=== PATIENT | male | born 1965 | race Caucasian/White ===

== ENCOUNTER 2022-08-04 08:40 | Emergency (ER) | payer OTHER, SELFPAY ==
[2022-08-04] VITALS (27 sets, daily range): BP systolic 113–138; BP diastolic 77–95; PULSE 71–86; RESP 18; TEMP 36.7; O2SAT 95–98; BMI 23.1
--- NOTE | 2022-08-04 08:58 | ED.NURSE ---
ekg done, pt placed on heart monitor shows sr 80's. #20 sl placed R FA, blood drawn off iv start
--- NOTE | 2022-08-04 09:06 | CRLHL7_ITS ---
For Patients: As a result of the Century Cures Act, medical imaging exams and procedure reports are released immediately into your electronic medical record. You may view this report before your referring provider. If you have questions, please contact your health care provider. INDICATION: CHEST PAIN TECHNIQUE: Chest 1 view. COMPARISON: 10/27/16 FINDINGS: Cardiovascular and mediastinum: Heart size and vasculature are normal in caliber and appearance. Mediastinum is within normal limits. Lungs and pleural space: Lungs are clear. No sign of infiltrate or mass. No sign of pleural effusion. No pneumothorax. Bones and soft tissues: No significant findings. IMPRESSION: Unremarkable chest. Dictated by: Estevan Murray MD @ 08/04/2022 09:32:32 (Electronically Signed)
[2022-08-04 09:18] LABS: Basophils Absolute Auto 0.04 K/uL (0.00-0.30); Basophils Percent Auto 0.5 % (0.0-3.0); Eosinophils Percent Auto 1.2 % (0.0-7.0); Hematocrit 47.5 % (37.0-53.0); Hemoglobin* 16.8 gm/dL (13.5-17.5); Immature Granulocytes Abs Auto 0.02 K/uL (0.00-0.30); Immature Granulocytes Pct Auto 0.2 %; Lymphocytes Absolute Auto 2.14 K/uL (0.90-2.90); Lymphocytes Percent Auto 25.4 % (20-44); Mean Corpuscular HGB Conc 35 gm/dL (32-36); Mean Corpuscular Hemoglobin 30 pg (26-34); Mean Corpuscular Volume 85 fL (80-100); Monocytes Percent Auto 7.1 % (0.0-11.0); Neutrophils Absolute Auto 5.53 K/uL (1.7-7.0); Neutrophils Percent Auto 65.6 % (42.0-72.0); Platelet Count* 260 K/uL (140-440); Red Blood Count 5.58 m/uL (4.30-5.90); White Blood Count* 8.43 K/uL (4.50-11.00)
[2022-08-04 09:19] LABS: Slide Review Reflex No
[2022-08-04 09:38] LABS: Chloride* 113 mmol/L (96-114); Potassium* 4.4 mmol/L (3.6-5.1); Sodium* 140 mmol/L (135-149)
[2022-08-04 09:39] LABS: Albumin* 4.2 g/dL (3.3-5.0)
[2022-08-04 09:41] LABS: Creatinine* 0.6 mg/dL (0.5-1.5); Est. Creatinine Clearance* 146.37; Estimated Glomerular Filt Rate 112 ml/min
[2022-08-04 09:42] LABS: Aspartate Amino Transferase* 35 U/L (12-35); Bilirubin Direct* 0.1 mg/dL (0.0-0.5); Bilirubin Total* 0.5 mg/dL (0.1-1.5); Blood Urea Nitrogen* 12 mg/dL (7-30); Calcium* 9.3 mg/dL (8.4-10.6); Carbon Dioxide* 22 mmol/L (20-32); Glucose* 88 mg/dL (60-115); Total Protein* 7.1 g/dL (6.0-8.3)
[2022-08-04 09:43] LABS: Alanine Aminotransferase* 30 U/L (4-50); Alkaline Phosphatase* 77 U/L (40-150)
[2022-08-04] MEDS: ASPIRIN 81 MG TAB.CHEW 324 MG PO (09:46)
[2022-08-04 09:51] LABS: NT Pro B Type NatriureticPept* 785 pg/mL
[2022-08-04 09:54] LABS: D Dimer Quantitative* < 0.27 ug/ml (0.00-0.50)
[2022-08-04 09:55] LABS: Troponin I* 0.96 ng/mL (0.01-0.04)
[2022-08-04 09:56] LABS: C Reactive Protein* < 0.5 mg/dL (0.5-1.0)
--- NOTE | 2022-08-04 09:56 | ED.NURSE ---
critical lab received - Troponin 0.96 - Dr. Lofton aware
[2022-08-04] MEDS: HEPARIN 5,000 UNIT/0.5 ML INJ 4000 UNIT IVP (10:20)
[2022-08-04] MEDS: HEPARIN 25,000 UNIT/500 ML BAG 19 UNIT IV (10:21)
--- NOTE | 2022-08-04 10:28 | ED.NURSE ---
heparin drip started, bolus given. plan transfer to [facility] when bed available, possibly in 4 hours
[2022-08-04 10:48] LABS: SARS PCR* Negative SARS-CoV-2 (Negative)
[2022-08-04 11:01] LABS: INR 0.92 (0.91-1.10); Partial Thromboplastin Time* 29 Seconds (23-33); Prothrombin Time 12.9 Seconds
--- NOTE | 2022-08-04 11:54 | ED_ITS ---
HPI - General Adult General Date Seen: 08/04/22 Chief complaint: Chest Pain Stated complaint: Chest pain Time Seen by Provider: 08/04/22 08:53 Source: patient, RN notes reviewed and old records reviewed Mode of arrival: ambulatory Limitations: no limitations History of Present Illness HPI narrative: Patient is a 56-year-old male with a history of coronary artery disease, status post stent of the RCA in 2017. For the past week or so he has been having symptoms reminiscent of his symptoms prior to his stent. He says he has been having significant fatigue with exertion, which is how he felt prior to the stent. In addition, he has been having chest tightness with radiation into bilateral arms. He did not have chest pain before his stent. Chest pain resolves with rest. He was seen at [facility] on last week, he had negative troponins and a CT coronary angiogram which showed a little bit of plaque in the left circumflex, other arteries were clean and the stent was patent. He was sent home with recommended close follow-up with primary care. He has not yet followed up with primary care. He says on Thursday he was shoveling snow, was only able to do 4 or 5 scoops of no before he developed pain in his chest, associated with diaphoresis. He says he felt poorly, went inside and had to lay down for a while. He did not seek medical care on Thursday. Today, he was walking in his house and again developed chest pain with radiation into the arms. He does not get significantly short of breath, no nausea or vomiting. Symptoms today lasted about 30 minutes and then resolved. He presents to the ER for further evaluation. He is pain-free right now. He takes a baby aspirin daily. He takes medications for high cholesterol and hypertension. He had continued to smoke, although he says he smokes mostly cigars, but says he has not smoked since . Denies significant alcohol use. Related Data Home Medications Medication Instructions Recorded Confirmed atorvastatin 40 mg tablet mg 08/04/22 losartan 50 mg tablet mg 08/04/22 Allergies Allergy/AdvReac Type Severity Reaction Status Date / Time No Known Drug Allergies Allergy Verified 08/04/22 08:50 Review of Systems Status of ROS: Reports: 10 or more systems reviewed and unremarkable except as noted in History and below PFSH PFS Social History Smoking Status: Current some day smoker What tobacco products do you use: cigars How often do you have a drink containing alcohol: 4 or more times a week AUDIT-C Alcohol total score: 4 Non-prescribed substance use: marijuana (any form) Exam Narrative: Exam Narrative: Vital signs as noted above. In general, an alert, well-appearing patient. Head: Normocephalic, atraumatic. Eyes: Pupils are equal reactive. Extraocular movements are full. Conjunctivae are normal. ENT: Mucous membranes are moist. Throat is normal. Neck: Supple without lymphadenopathy. Heart: Regular rate and rhythm. No murmur or rub. Lungs: Clear bilaterally. No increased work of breathing, crackles or wheezes. Abdomen: Soft and nontender. No organomegaly. Extremities: Well perfused. No edema. No calf tenderness. Pulses intact. Neurologic: Patient is alert and oriented to person and place. Speech is fluent. Face is symmetric. Moves all extremities equally. Affect: Normal. Skin: Warm and dry. Well perfused. Const: Vital Signs, click to edit/add: Vital Signs - 24 hr 08/04/22 08:45 08/04/22 09:04 08/04/22 09:05 Temperature 98.1 F Pulse Rate 86 79 Pulse Rate [Right Pulse Oximeter] 79 Respiratory Rate 18 Blood Pressure 125/82 Blood Pressure [Ri ght Upper Arm] 138/95 H Pulse Oximetry 98 97 98 Oxygen Delivery Me thod Room Air 08/04/22 09:30 08/04/22 09:32 08/04/22 10:00 Temperature Pulse Rate 84 86 83 Pulse Rate [Right Pulse Oximeter] Respiratory Rate Blood Pressure 115/81 Blood Pressure [Ri ght Upper Arm] Pulse Oximetry 96 96 97 Oxygen Delivery Me thod 08/04/22 10:02 08/04/22 10:03 08/04/22 10:30 Temperature Pulse Rate 78 74 77 Pulse Rate [Right Pulse Oximeter] Respiratory Rate Blood Pressure 119/78 Blood Pressure [Ri ght Upper Arm] Pulse Oximetry 96 96 97 Oxygen Delivery Me thod 08/04/22 10:32 08/04/22 10:33 08/04/22 11:00 Temperature Pulse Rate 79 81 82 Pulse Rate [Right Pulse Oximeter] Respiratory Rate Blood Pressure 123/86 Blood Pressure [Ri ght Upper Arm] Pulse Oximetry 97 97 96 Oxygen Delivery Me thod 08/04/22 11:02 08/04/22 11:30 08/04/22 11:32 Temperature Pulse Rate 83 85 77 Pulse Rate [Right Pulse Oximeter] Respiratory Rate Blood Pressure 121/86 127/79 Blood Pressure [Ri ght Upper Arm] Pulse Oximetry 97 96 96 Oxygen Delivery Me thod 08/04/22 12:00 08/04/22 12:02 08/04/22 12:30 Temperature Pulse Rate 78 77 77 Pulse Rate [Right Pulse Oximeter] Respiratory Rate Blood Pressure 127/82 Blood Pressure [Ri ght Upper Arm] Pulse Oximetry 95 96 95 Oxygen Delivery Me thod 08/04/22 12:32 08/04/22 12:33 08/04/22 13:00 Temperature Pulse Rate 76 76 72 Pulse Rate [Right Pulse Oximeter] Respiratory Rate Blood Pressure 122/77 Blood Pressure [Ri ght Upper Arm] Pulse Oximetry 96 95 96 Oxygen Delivery Me thod 08/04/22 13:02 08/04/22 13:30 08/04/22 13:32 Temperature Pulse Rate 75 75 76 Pulse Rate [Right Pulse Oximeter] Respiratory Rate Blood Pressure 121/84 113/80 Blood Pressure [Ri ght Upper Arm] Pulse Oximetry 97 96 98 Oxygen Delivery Me thod 08/04/22 14:00 08/04/22 14:02 08/04/22 14:32 Temperature Pulse Rate 77 71 76 Pulse Rate [Right Pulse Oximeter] Respiratory Rate Blood Pressure 123/85 123/94 H Blood Pressure [Ri ght Upper Arm] Pulse Oximetry 96 97 97 Oxygen Delivery Me thod Course Course Hospital Course: On arrival, patient had an EKG which by my review showed a normal sinus rhythm, ventricular rate of 70 beats per minute. Compared to an EKG from [facility] on , the only potential changes that the T-waves are more prominent in the anterior leads. There are no ST segment changes. He has Q-waves in leads 2 3 a nd F. I did repeat the EKG about 30 minutes later, patient remained pain-free at that time, EKG continues to show no acute ST segment changes. He received an aspirin, labs were drawn. Initial point of care troponin was 0.4, a lab troponin was 0.96. Portable chest x-ray by my review was unremarkable, final radiology read was likewise negative. I did talk with the rope rider, Dr. Grier, who was on-call for Cardiology at [place]. He agreed with treatment for non-STEMI at this time with heparin bolus and drip, so this was initiated. Patient's labs are unremarkable, white count is 8.4, hemoglobin 16.8. D-dimer is negative. Metabolic panel shows normal electrolytes, BUN 12, creatinine 0.6, LFTs normal. BNP mildly elevated at 785 but no evidence of congestive heart failure on exam or chest x-ray. COVID is negative. Patient has been hemodynamically stable, no further complaints of chest pain thus far in the emergency department. Update from [facility] was that the bed assignment would be delayed an additional 5 hours or so. Therefore, we did make some phone calls looking for other bed availability. We were able to secure a bed at [facility]; I spoke with Dr. Muñoz who was on-call for Cardiology there. Patient was transferred there by ground in stable condition. Vital Signs Vital signs: Initial Vital Signs Temperature 98.1 F 08/04/22 08:45 Temperature Source Temporal Artery Scan 08/04/22 08:45 Pulse Rate 79 08/04/22 08:45 Respiratory Rate 18 08/04/22 08:45 Blood Pressure 138/95 H 08/04/22 08:45 Blood Pressure Mean 109 08/04/22 08:45 Blood Pressure Position Sitting 08/04/22 08:45 Pulse Oximetry 98 08/04/22 08:45 Oxygen Delivery Method 08/04/22 08:45 Vital Signs Temperature 98.1 F 08/04/22 08:45 Pulse Rate 79 08/04/22 08:45 Respiratory Rate 18 08/04/22 08:45 Blood Pressure 138/95 H 08/04/22 08:45 Pulse Oximetry 98 08/04/22 08:45 Oxygen Delivery Method 08/04/22 08:45 Temperature 98.1 F 08/04/22 08:45 Pulse Rate 76 08/04/22 14:32 Respiratory Rate 18 08/04/22 08:45 Blood Pressure 123/94 H 08/04/22 14:32 Pulse Oximetry 97 08/04/22 14:32 Oxygen Delivery Method 08/04/22 08:45 Medical Decision Making Lab Data Labs: Lab Results 08/04/22 08/04/22 08/04/22 Range/Units 08:58 08:58 08:58 WBC 8.43 (4.50-11.00) K/uL RBC 5.58 (4.30-5.90) m/uL Hgb 16.8 (13.5-17.5) gm/dL Hct 47.5 (37.0-53.0) % MCV 85 (80-100) fL MCH 30 (26-34) pg MCHC 35 (32-36) gm/dL RDW Coeff of Alfred 13.0 (11.5-15.5) % Plt Count 260 (140-440) K/uL Neut % (Auto) 65.6 (42.0-72.0) % Lymph % (Auto) 25.4 (20-44) % [place] % (Auto) 7.1 (0.0-11.0) % Eos % (Auto) 1.2 (0.0-7.0) % Baso % (Auto) 0.5 (0.0-3.0) % Neut # (Auto) 5.53 (1.7-7.0) K/uL Lymph # (Auto) 2.14 (0.90-2.90) K/uL [place] # (Auto) 0.60 (0.00-0.90) K/UL Eos # (Auto) 0.10 (0.00-0.50) K/uL Baso # (Auto) 0.04 (0.00-0.30) K/uL INR (0.91-1.10) APTT (23-33) Seconds D-Dimer Quant (PE/DVT) < 0.27 (0.00-0.50) ug/ml Sodium 140 (135-149) mmol/L Potassium 4.4 (3.6-5.1) mmol/L Chloride 113 (96-114) mmol/L Carbon Dioxide 22 (20-32) mmol/L BUN 12 (7-30) mg/dL Creatinine 0.6 (0.5-1.5) mg/dL Estimated Creat Clear 146.37 Estimated GFR 112 ml/min Glucose 88 (60-115) mg/dL Calcium 9.3 (8.4-10.6) mg/dL Total Bilirubin (0.1-1.5) mg/dL Direct Bilirubin (0.0-0.5) mg/dL AST (12-35) U/L ALT (4-50) U/L Alkaline Phosphatase (40-150) U/L Troponin I (0.01-0.04) ng/mL C-Reactive Protein < 0.5 L (0.5-1.0) mg/dL NT-Pro-B Natriuret Pep pg/mL Total Protein (6.0-8.3) g/dL Albumin (3.3-5.0) g/dL SARS-CoV-2 (PCR) (Negative) POC Troponin I (0.01-0.04) ng/ml 08/04/22 08/04/22 08/04/22 Range/Units 08:58 08:58 09:08 WBC (4.50-11.00) K/uL RBC (4.30-5.90) m/uL Hgb (13.5-17.5) gm/dL Hct (37.0-53.0) % MCV (80-100) fL MCH (26-34) pg MCHC (32-36) gm/dL RDW Coeff of Alfred (11.5-15.5) % Plt Count (140-440) K/uL Neut % (Auto) (42.0-72.0) % Lymph % (Auto) (20-44) % [place] % (Auto) (0.0-11.0) % Eos % (Auto) (0.0-7.0) % Baso % (Auto) (0.0-3.0) % Neut # (Auto) (1.7-7.0) K/uL Lymph # (Auto) (0.90-2.90) K/uL [place] # (Auto) (0.00-0.90) K/UL Eos # (Auto) (0.00-0.50) K/uL Baso # (Auto) (0.00-0.30) K/uL INR 0.92 (0.91-1.10) APTT 29 (23-33) Seconds D-Dimer Quant (PE/DVT) (0.00-0.50) ug/ml Sodium (135-149) mmol/L Potassium (3.6-5.1) mmol/L Chloride (96-114) mmol/L Carbon Dioxide (20-32) mmol/L BUN (7-30) mg/dL Creatinine (0.5-1.5) mg/dL Estimated Creat Clear Estimated GFR ml/min Glucose (60-115) mg/dL Calcium (8.4-10.6) mg/dL Total Bilirubin 0.5 (0.1-1.5) mg/dL Direct Bilirubin 0.1 (0.0-0.5) mg/dL AST 35 (12-35) U/L ALT 30 (4-50) U/L Alkaline Phosphatase 77 (40-150) U/L Troponin I 0.96 H* (0.01-0.04) ng/mL C-Reactive Protein (0.5-1.0) mg/dL NT-Pro-B Natriuret Pep 785 pg/mL Total Protein 7.1 (6.0-8.3) g/dL Albumin 4.2 (3.3-5.0) g/dL SARS-CoV-2 (PCR) (Negative) POC Troponin I 0.40 H (0.01-0.04) ng/ml 08/04/22 Range/Units 09:41 WBC (4.50-11.00) K/uL RBC (4.30-5.90) m/uL Hgb (13.5-17.5) gm/dL Hct (37.0-53.0) % MCV (80-100) fL MCH (26-34) pg MCHC (32-36) gm/dL RDW Coeff of Alfred (11.5-15.5) % Plt Count (140-440) K/uL Neut % (Auto) (42.0-72.0) % Lymph % (Auto) (20-44) % [place] % (Auto) (0.0-11.0) % Eos % (Auto) (0.0-7.0) % Baso % (Auto) (0.0-3.0) % Neut # (Auto) (1.7-7.0) K/uL Lymph # (Auto) (0.90-2.90) K/uL [place] # (Auto) (0.00-0.90) K/UL Eos # (Auto) (0.00-0.50) K/uL Baso # (Auto) (0.00-0.30) K/uL INR (0.91-1.10) APTT (23-33) Seconds D-Dimer Quant (PE/DVT) (0.00-0.50) ug/ml Sodium (135-149) mmol/L Potassium (3.6-5.1) mmol/L Chloride (96-114) mmol/L Carbon Dioxide (20-32) mmol/L BUN (7-30) mg/dL Creatinine (0.5-1.5) mg/dL Estimated Creat Clear Estimated GFR ml/min Glucose (60-115) mg/dL Calcium (8.4-10.6) mg/dL Total Bilirubin (0.1-1.5) mg/dL Direct Bilirubin (0.0-0.5) mg/dL AST (12-35) U/L ALT (4-50) U/L Alkaline Phosphatase (40-150) U/L Troponin I (0.01-0.04) ng/mL C-Reactive Protein (0.5-1.0) mg/dL NT-Pro-B Natriuret Pep pg/mL Total Protein (6.0-8.3) g/dL Albumin (3.3-5.0) g/dL SARS-CoV-2 (PCR) Negative SARS-CoV-2 (Negative) POC Troponin I (0.01-0.04) ng/ml Discharge Plan Discharge Clinical Impression: Acute non-ST elevation myocardial infarction (NSTEMI) Patient Disposition: Xfer [place] Discharge Location: [facility] Condition: Stable Prescriptions: No Action losartan 50 mg tablet Label Comments: Take 1 Tablet (50 mg) by mouth once daily. atorvastatin 40 mg tablet Label Comments: TAKE ONE TABLET BY MOUTH ONE TIME DAILY AT BEDTIME Stand Alone Forms: MyHealth Info Instructions
--- NOTE | 2022-08-04 14:43 | ED.NURSE ---
report to [facility] - at bedside to transport pt, pt to [facility]. attempted report to isabel RN, they will call back when ready.
--- NOTE | 2022-08-04 15:37 | ED.NURSE ---
report to tila BROTHERS at [facility] [place].
== END 2022-08-04 14:55 | disposition other institution (70) ==
PROVIDERS: Emergency Provider Emergency Medicine; PCP Physician Assistant
DX: I21.4 Non-ST elevation (NSTEMI) myocardial infarction (principal)
CPT/HCPCS: 36415; 71045; 80048; 80076; 83880; 84484; 85025; 85379; 85610; 85730; 86140; 87635; 93005; 94761; 96374; 99285; A9270; J1644

== ENCOUNTER 2022-08-04 14:39 | Outpatient (CLI) | payer OTHER, SELFPAY | END 2022-08-04 14:40 | disposition home or self-care (01) | LOC: AMB 08-06 01:59 | PROVIDERS: PCP Physician Assistant; Visit Provider Emergency Medicine | DX: R77.8 Other specified abnormalities of plasma proteins (principal) | CPT/HCPCS: A0425; A0434 ==

== ENCOUNTER 2023-08-07 06:32 | Emergency (ER) | payer OTHER, SELFPAY ==
[2023-08-07 06:37] VITALS: BP 143/92; PULSE 75; RESP 20; TEMP 36.9; O2SAT 97; BMI 23.1
[2023-08-07 06:58] LABS: Troponin, Point-of-Care* 0.01 ng/ml (0.01-0.04)
--- NOTE | 2023-08-07 07:03 | CRLHL7_ITS ---
For Patients: As a result of the Century Cures Act, medical imaging exams and procedure reports are released immediately into your electronic medical record. You may view this report before your referring provider. If you have questions, please contact your health care provider. Indication: Chest pain Technique: Chest 1 view Comparison: Chest x-ray 08/04/2022 Findings/Impression: Cardiovascular and mediastinum: Normal heart size with coronary stent noted. Lungs and pleural space: Lungs are clear. No sign of infiltrate or mass. No sign of pleural effusion. No pneumothorax. Bones and soft tissues: No acute findings. Dictated by Werner Amaro MD @ 08/07/2023 7:19:09 AM (Electronically Signed)
[2023-08-07 07:04] LABS: Basophils Absolute Auto 0.03 K/uL (0.00-0.30); Basophils Percent Auto 0.4 % (0.0-3.0); Eosinophils Absolute Auto 0.12 K/uL (0.00-0.50); Eosinophils Percent Auto 1.6 % (0.0-7.0); Hematocrit 48.4 % (37.0-53.0); Hemoglobin* 16.5 gm/dL (13.5-17.5); Immature Granulocytes Abs Auto 0.04 K/uL (0.00-0.30); Immature Granulocytes Pct Auto 0.5 %; Lymphocytes Absolute Auto 1.91 K/uL (0.90-2.90); Lymphocytes Percent Auto 25.8 % (20-44); Mean Corpuscular HGB Conc 34 gm/dL (32-36); Mean Corpuscular Hemoglobin 30 pg (26-34); Mean Corpuscular Volume 87 fL (80-100); Neutrophils Absolute Auto 4.78 K/uL (1.7-7.0); Neutrophils Percent Auto 64.7 % (42.0-72.0); Platelet Count* 251 K/uL (140-440); RDW Coefficient of Variation % 12.9 % (11.5-15.5); Red Blood Count 5.56 m/uL (4.30-5.90)
[2023-08-07 07:05] LABS: Slide Review Reflex No
--- OUTSIDE RECORDS SUMMARY | 2023-08-07 07:12 | XMS_ITS | Encounter Summary ---
Author Name Unknown Organization [facility] Address [address] [place] [address] Care Team Providers Care Physical Scientist Name Role Phone Elsewhere, Pcp Primary Care Provider Unavailabl e Reason for Visit * Reason Onset Date Comments Nicotine Dependence 02/16/2023 Encounter Details Date Type Department Care Team (Latest Contact Info) Description 02/16/2023 Clinical Communication Department of Nicotine Dependence, [facility], in [place], [place] [address] [place] [address] Tena Read [address] [place] [address] Nicotine Dependence Social History Tobacco Use Types Packs/Day Years Used Date Smoking Tobacco: Every Day Cigarettes 1 40 Started: 07/06/1978 Smokeless Tobacco: Never Comments:Cut down to 5 per d ay about 5 years ago, around 2018 Nutrition Answer Date Recorded Nutrition: EVOO Fat Source Unknown 08/04 Nutrition: Servings of Fruits/Vegetables per Day Not on file 08/04/2022 Dental Answer Date Recorded Dental: Regular Dentist Unknown 08/04/19 Sex and Gender Information Value Date Recorded Sex Assigned at Not on file Gender Identity Not on file Sexual Orientation Not on file documented as of this encounter Plan of Treatment Not on file documented as of this encounter Visit Diagnoses Not on filedocumented in this encounter Care Teams Physical Scientist Relationship Specialty Start Date End Date Elsewhere, Pcp PCP - General Internal Medicine 08/04/22 documented as of this encounter
--- OUTSIDE RECORDS SUMMARY | 2023-08-07 07:12 | XMS_ITS | Referral Summary ---
Author Name Unknown Organization [facility] Address [address] [place] [address] Care Team Providers Care Proof Plate Maker Name Role Phone Elsewhere, Pcp Primary Care Provider Unavailabl e Source Comments Patient records contain information from all sites at [facility]. For routine questions regarding patient records, call [phone] during business hours, M-F 8:00 AM - 5:00 PM Central Time. Record requests for emergency care only can be directed to [phone] at any time.[facility] Encounters Date Type Department Care Team Description 08/07/2023 Refill [facility], Sixth Floor [address] [place] [id number] Rosmery Canela Med Refill from Last 3 Months Allergies No known active allergies Medications Medication Sig Dispensed Refills Start Date End Date Status aspirin [address] tablet Take 81 mg by mouth daily. 0 Active omega-3 fatty acids-fish oil 300-1,000 mg per capsule Take 1 g by mouth daily. 0 Active atorvastatin (LIPITOR) 80 mg tablet Take 1 tablet (80 mg total) by mouth at bedtime. 90 tablet 3 08/06/2022 Active nitroglycerin (NITROSTAT) 0.4 mg SL tabletIndications:a ngina Place 1 tablet (0.4 mg total) under the tongue every 5 (five) minutes as needed for chest pain Indications: angina, a type of chest pain. 25 tablet 11 08/06/2022 Active losartan (COZAAR) 25 mg tablet Take 1 tablet (25 mg total) by mouth daily. 60 tablet 0 08/07/2022 Active metoprolol succinate (TOPROL-XL) 50 mg 24 hr tablet Take 1 tablet (50 mg total) by mouth daily. Do not crush or chew. 60 tablet 0 08/07/2022 Active nicotine (NICODERM CQ) 14 mg/24 hr patch Apply 14 mg patch daily for 4-10 weeks, then taper to 7 mg for 4-10 weeks until off. 28 patch 5 08/06/2022 Active clopidogreL (PLAVIX) 75 mg tablet Take 1 tablet (75 mg total) by mouth daily. 30 tablet 11 08/06/2022 08/06/2023 nicotine polacrilex (NICORETTE) 2 mg gum Chew 1 each (2 mg total) as needed for smoking cessation. Use 1 piece every 1-2 hrs as needed for cravings. 110 each 3 08/06/2022 08/06/2023 nicotine (Nicoderm CQ) 7 mg/[address] 1 patch on the skin daily. Apply 14 mg patch daily for 4-10 weeks, then taper to 7 mg for 4-10 weeks until off. 28 patch 5 08/06/2022 08/06/2023 Active Problems Problem Noted Date Diagnosed Date Non-ST Elevation Myocardial Infarction 3 Social History Tobacco Use Types Packs/Day Years Used Date Smoking Tobacco: Every Day Cigarettes 1 40 Started: 07/06/1978 Smokeless Tobacco: Never Tobacco Cessation:Ready to Q uit: Not Asked; Counseling Given: Yes Comments:Cut down to 5 per day about 5 years ago, around 2018 Nutrition Answer Date Recorded Nutrition: EVOO Fat Source Unknown 08/04 Nutrition: Servings of Fruits/Vegetables per Day Not on file 08/04/2022 Dental Answer Date Recorded Dental: Regular Dentist Unknown 08/04/19 23 Sex and Gender Information Value Date Recorded Sex Assigned at Not on file Gender Identity Not on file Sexual Orientation Not on file Last Filed Vital Signs Vital Sign Reading Time Taken Comments Blood Pressure 128/85 08/06/2022 2:24 PM GARNISHER Pulse 73 08/06/2022 2:24 PM GARNISHER Temperature 36.7 ??C (98.1 ??F) 08/06/2022 2:24 PM CS T Respiratory Rate 15 08/06/2022 2:24 PM GARNISHER Oxygen Saturation 97% 08/06/2022 2:24 PM GARNISHER Inhaled Oxygen Concentration - - Weight 74 kg (163 lb 2.3 oz) 08/06/2022 6:00 AM GARNISHER Height 178 cm (5' 10.08) 08/04/2022 4:24 PM GARNISHER Body Mass Index 23.36 08/04/2022 4:24 PM GARNISHER Plan of Treatment Not on file Medical Devices Implanted Type Area Front Office Attendant Device Identifier Shelf Expiration Date Model / Serial / Lot Stnt Synergy Xd De [id number] - [id number] Implanted:Qty : 1 on 08/05/2022 by Poppy Bae M.D. at [facility] Cardiac Stent N/A: Coronary [employer] 02/04/2024 [id number] / / [id number] Description:Distal RCA Advance Directives For more information, please contact: [phone] Latest Code Status on File Code Status Date Activated Date Inactivated Comments Full Code 08/05/2022 6:53 PM 08/06/2022 5:13 PM Question Answer Comments Full Code: Discussed Code Status History Code Status Date Activated Date Inactivated Comments Full Code 08/04/2022 4:54 PM 08/05/2022 6:53 PM Question Answer Comments Full Code: Discussed Care Teams Proof Plate Maker Relationship Specialty Start Date End Date Elsewhere, Pcp PCP - General Internal Medicine 08/04/22
--- OUTSIDE RECORDS SUMMARY | 2023-08-07 07:12 | XMS_ITS | Clinical Summary ---
Author Name Unknown Organization [facility] Address [address] [place] [address] Care Team Providers Care Manager Intelligence Name Role Phone Elsewhere, Pcp Primary Care Provider Unavailabl e Source Comments Patient records contain information from all sites at [facility]. For routine questions regarding patient records, call [phone] during business hours, M-F 8:00 AM - 5:00 PM Central Time. Record requests for emergency care only can be directed to [phone] at any time.[facility] Allergies No known active allergies Medications Medication [...] Diagnosed Date Non-ST Elevation Myocardial Infarction 3 Encounters Date Type Department Care Team Description 08/07/2023 Refill [facility], [facility], Sixth Floor [address] [place] [phone] Rosmery Canela Med Refill from Last 3 Months Social History Tobacco Use Types Packs/Day Years [...] Comments Blood Pressure 128/85 08/06/2022 2:24 PM ENDOCRINOLOGY PHYSICIAN Pulse 73 08/06/2022 2:24 PM ENDOCRINOLOGY PHYSICIAN Temperature 36.7 ??C (98.1 ??F) 08/06/2022 2:24 PM CS T Respiratory Rate 15 08/06/2022 2:24 PM ENDOCRINOLOGY PHYSICIAN Oxygen Saturation 97% 08/06/2022 2:24 PM ENDOCRINOLOGY PHYSICIAN Inhaled Oxygen Concentration - - Weight 74 kg (163 lb 2.3 oz) 08/06/2022 6:00 AM ENDOCRINOLOGY PHYSICIAN Height 178 cm (5' 10.08) 08/04/2022 4:24 PM ENDOCRINOLOGY PHYSICIAN Body Mass Index 23.36 08/04/2022 4:24 PM ENDOCRINOLOGY PHYSICIAN Plan of Treatment Health Maintenance Due Date Last Done Comments CT Colonography 1963 Cologuard 1963 Colonoscopy 1963 Colorectal Cancer Screening 1963 FIT 1963 HIV Screening 1963 Hepatitis B Vaccines (1 of 3 - 3-dose series) 1963 Hepatitis C Screening 1963 Lung Cancer Screening 1963 Pneumococcal vaccine (0-64 y ears) (1 of 2 - PCV) 12/09/1969 Office Visit for Blood Press ure Check / Re-check 08/16/2022 08/16/2021 COVID-19 Vaccine (2022-2 4 season) 2023 07/13/2022, 04/29/2022, 11/22/2021, Additional history exists Depression Screening (Annual PHQ-2) 07/06/2023 Fasting Glucose for Diabetes Screening 03/24/2026 03/24/2023, 08/06/2022, 08/05/2022, Additional history exists Lipid (Cholesterol) Screening 03/24/2028, 08/04/2022, 11/22/2021, Additional history exists DTaP,Tdap,and Td Vaccines (3 - Td or Tdap) 06/12/2032 06/12/2022, 07/12/2012 Zoster Vaccines Completed 11/25/2022, 06/12/2022 Influenza Vaccine Completed 03/24/2023, , 04/24/2021, Additional history exists Medical Devices Implanted Type Area Kennel Technician Device Identifier Shelf Expiration Date Model / Serial / Lot Stnt Synergy Xd De 3.00x24 - [id number] Implanted:Qty : 1 on 08/05/2022 by Poppy Bae M.D. at [facility] Cardiac Stent N/A: Coronary [employer] 02/04/2024 [id number] / / [id number] Description:Distal RCA Advance Directives For more information, please contact: [phone] Latest Code Status on File Code Status Date Activated Date Inactivated Comments Full Code 08/05/2022 6:53 PM 08/06/2022 5:13 PM Question Answer Comments Full Code: Discussed Code Status History Code Status Date Activated Date Inactivated Comments Full Code 08/04/2022 4:54 PM 08/05/2022 6:53 PM Question Answer Comments Full Code: Discussed Care Teams Manager Intelligence Relationship Specialty Start Date End Date Elsewhere, Pcp PCP - General Internal Medicine 08/04/22
--- OUTSIDE RECORDS SUMMARY | 2023-08-07 07:12 | XMS_ITS | Encounter Summary ---
Author Name Unknown Organization [facility] Address [address] [place] [address] Care Team Providers Care Program Management Manager Name Role Phone Elsewhere, Pcp Primary Care Provider Unavailabl e Encounter Details Date Type Department Care Team (Latest Contact Info) Description 08/04/2022 Intake [facility] Social History Tobacco Use Types Packs/Day Years Used Date Smoking Tobacco: Never Assessed Nutrition Answer Date Recorded Nutrition: EVOO Fat [...] on filedocumented in this encounter Care Teams Program Management Manager Relationship Specialty Start Date End Date Elsewhere, Pcp PCP - General Internal Medicine 08/04/22 documented as of this encounter
--- OUTSIDE RECORDS SUMMARY | 2023-08-07 07:12 | XMS_ITS | Encounter Summary ---
Author Name Unknown Organization [facility] Address [address] [place] [address] Care Team Providers Care Jacquard Loom Fixer Name Role Phone Elsewhere, Pcp Primary Care Provider Unavailabl e Reason for Visit * Reason Onset Date Comments Nicotine Dependence 09/16/2022 Encounter Details Date Type Department Care Team (Latest Contact Info) Description 09/16/2022 Clinical Communication Department of Nicotine Dependence, [facility], in [place], [place] [address] [place] [address] Tena Read [address] [place] [address] Nicotine Dependence Social History Tobacco Use Types [...] on filedocumented in this encounter Care Teams Jacquard Loom Fixer Relationship Specialty Start Date End Date Elsewhere, Pcp PCP - General Internal Medicine 08/04/22 documented as of this encounter
--- OUTSIDE RECORDS SUMMARY | 2023-08-07 07:12 | XMS_ITS ---
Author Name Unknown Organization [facility] Address [address] [place] [address] Care Team Providers Care Preparation Supervisor Name Role Phone Unavailable Unavailable Unavailable Surgery Details Not on file Complications Check Surgery Details section. Procedure Estimated Blood Loss Check Surgery Details section. Procedure Findings Check Surgery Details section. Procedure Specimens Taken Check Surgery Details section.
--- OUTSIDE RECORDS SUMMARY | 2023-08-07 07:12 | XMS_ITS | Encounter Summary ---
Author Name Unknown Organization [facility] Address [address] [place] [id number] Care Team Providers Care Fingernail Sculpturer Name Role Phone Elsewhere, Pcp Primary Care Provider Unavailabl e Reason for Referral * Outpatient (Routine) - Authorized Specialty Diagnoses / Procedures Referred By Contpablo t Referred To Contact Diagnoses Clinical Research Exam Procedures ECG Remote Wearable Ru Crowe [address] [place] [phone] [facility] Referral ID Status Reason Start Date Expiration Date V isits Requested Visits Authorized [id number] Authorized 08/11/2022 08/11/2023 1 1 ER CLOSED MOLDS Encounter Details Date Type Department Care Team (Late st Contact Info) Description 08/06/2022 Orders Only Department of Cardiovascular Diseases in [place], [place] [address] [place] [address] Hema Gaines, CAmberC.RAmberCAmber [address] [place] [phone] Clinical Research Exam (Primary Dx) Social History Tobacco Use Types Packs/Day Years [...] on file documented as of this encounter Procedures Procedure Name Priority Date/Time Associated Diagnosis Comments ECG REMOTE WEARABLE Routine 08/06/2022 1 0:27 AM MOLDER CLOSED MOLDS Clinical Research Exam documented in this encounter Results * ECG Remote Wearable (08/06/2022 10:27 AM MOLDER CLOSED MOLDS) Ventricular Rate ECG/Min 75 BPM MUSE MS Interval 150 ms MUSE QRSD Interval 86 ms MUSE QT Interval 374 ms MUSE QTC Interval 417 ms MUSE P [place] 68 degrees MUSE R [place] 45 degrees MUSE T Wave [place] 44 degrees MUSE 08/06/2022 10:2 7 AM MOLDER CLOSED MOLDS 08/12/2022 8:18 AM MOLDER CLOSED MOLDS Impressions MUSE - 08/12/2022 8:18 AM MOLDER CLOSED MOLDS Normal sinus rhythm Normal ECG When compared with ECG of 06-AUG-2022 09:16, No significant change was found Reviewed by JOE Valadez Narrative Procedure Note Pascual Gaona M.D., Ph.D. - 08/12/2022 IMPRESSION: Normal sinus rhythm Normal ECG When compared with ECG of 06-AUG-2022 09:16, No significant change was found Reviewed by JOE Valadez Ru Sebastien ECG ORDERABLES MUSE NA documented in this encounter Visit Diagnoses Diagnosis Clinical Research Exam- Primary documented in this encounter Care Teams Fingernail Sculpturer Relationship Specialty Start Date End Date Elsewhere, Pcp PCP - General Internal Medicine 08/04/22 documented as of this encounter
--- OUTSIDE RECORDS SUMMARY | 2023-08-07 07:12 | XMS_ITS | Encounter Summary ---
Author Name Unknown Organization [facility] Address [address] [place] [address] Care Team Providers Care Agriculture Internship Name Role Phone Elsewhere, Pcp Primary Care Provider Unavailabl e Reason for Visit * Reason Onset Date Comments Nicotine Dependence 02/12/2023 Encounter Details Date Type Department Care Team (Latest Contact Info) Description 02/12/2023 Clinical Communication Department of Nicotine Dependence, [facility], in [place], [place] [address] [place] [address] Tena Read [address] [place] [address] Nicotine Dependence Social History Tobacco Use Types [...] on filedocumented in this encounter Care Teams Agriculture Internship Relationship Specialty Start Date End Date Elsewhere, Pcp PCP - General Internal Medicine 08/04/22 documented as of this encounter
--- OUTSIDE RECORDS SUMMARY | 2023-08-07 07:12 | XMS_ITS | Encounter Summary ---
Author Name Unknown Organization [facility] Address [address] [place] [address] Care Team Providers Care Electric Razor Mechanic Name Role Phone Elsewhere, Pcp Primary Care Provider Unavailabl e Reason for Visit * Reason Comments Med Refill Encounter Details Date Type Department Care Team (Late st Contact Info) Description 08/07/2023 Refill [facility], [facility], Sixth Floor [address] [place] [address] Rosmery Canela [address] [place] [address] Med Refill Social History Tobacco Use Types Packs/Day Years [...] on filedocumented in this encounter Care Teams Electric Razor Mechanic Relationship Specialty Start Date End Date Elsewhere, Pcp PCP - General Internal Medicine 08/04/22 documented as of this encounter
--- OUTSIDE RECORDS SUMMARY | 2023-08-07 07:13 | XMS_ITS | Clinical Summary ---
Author Name Unknown Organization [facility] Address [place], [place] [address] Care Team Providers Care Automatic Maintainer Name Role Phone Rosmery Alejandro Primary Care Provider [phone] Allergies No known active allergies Medications Medication Sig Dispensed Refills Start Date End Date Status fish oil-omega-3 fatty acids 1,000-340 mg capsule Take 1 capsule by mouth once daily. 0 10/30/2016 Active L.acidoph,saliva/B.bi f/S.therm (ACIDOPHILUS PROBIOTIC BLEND ORAL) Three Times Daily With Meals 0 08/18/2021 Active atorvastatin (LIPITOR) 80 mg tabletIndications:ath erosclerotic cardiovascular disease,mixed hyperlipidemia,myocar dial infarction prevention Take 80 mg by mouth once daily. 0 Active nicotine 14 mg/24 hr (NICODERM; HABITROL) 14 mg/24 hr patch Apply 14 mg patch daily for 4-10 weeks, then taper to 7 mg for 4-10 weeks until off. 0 08/06/2022 Active aspirin (ECOTRIN) 81 mg enteric coated tabletIndications:Non -ST elevation myocardial infarction (NSTEMI) (HC) Take 1 Tablet (81 mg) by mouth once daily with a meal. Take lifelong. 0 08/19/2022 Active clopidogreL (PLAVIX) 75 mg tabletIndications:sailaja cardial infarction prevention,thrombosis prevention after PCI Take 1 Tablet (75 mg) by mouth once daily. Needs to take through 08/05/23 0 08/19/2022 Active losartan (COZAAR) 25 mg tabletIndications:hyp ertension Take 1 Tablet (25 mg) by mouth once daily. 90 Tablet 3 10/15/2022 Active metoprolol succinate (TOPROL XL) 50 mg sustained-release tabletIndications:sailaja cardial reinfarction prevention Take 1 Tablet (50 mg) by mouth once daily. 90 Tablet 3 11/18/2022 Active nitroglycerin (NITROSTAT) 0.4 mg sublingual tabletIndications:ELI D (arteriosclerotic heart disease) Place 1 Tablet (0.4 mg) under the tongue every 5 minutes if needed for Chest Pain (first choice for chest pain). 25 Tablet 11 03/24/2023 Active nicotine (NICORETTE) 2 mg gum 2 mg one time if needed. 0 08/06/2022 08/06/2023 nicotine 7 mg/24 hr (NICODERM; HABITROL) 7 mg/24 hr patch Apply 1 Patch on dry, clean, hairless skin. 0 08/06/2022 08/06/2023 Active Problems Problem Noted Date Diagnosed Date Non-ST elevation myocardial infarction (NSTEMI) 08/19/2022 Overview: [facility] emergency room 07/31/22 with chest pain, normal troponins and CT angiogram showed patent stent RCA. Patient continued with chest pain, went to [facility] emergency room 08/04/22, elevated troponin. Transferred to [place], occluded stent noted. Stent replaced. HTN (hypertension) 10/12/2020 Adenomatous colon polyp 06/13/2020 Overview: Colonoscopy 06/2020 polyp, moderate diverticulosis, repeat in 5 years Atypical chest pain 09/28/2017 ASHD (arteriosclerotic heart disease) 10/31/2016 Overview: - angiogram 10/30/16: s/p SHAMIR dRCA Abnormal stress test 10/30/2016 Overview: -Stress echocardiogram 10/28/2016 Negative for ischemia EF 65-70% Bilateral inguinal hernia 11/23/2012 Hypertriglyceridemia 07/12/2012 Vertigo 07/12/2012 Resolved Problems Problem Noted Date Diagnosed Date Resolved Date Chest pain 10/30/2016 09/28/2017 Cigarette smoker 10/30/2016 11/04/2016 Immunizations Name Administration Dates Next Due COVID-19 vaccine (FRM Study Course NTech 30mcg/0.3mL) 12YO+ BIVALENT PF, MDV 07/13/2022 COVID-19 vaccine ([employer] NTech 30mcg/0.3mL) 12YO+ JORDAN-SUCROSE PF, MDV 11/22/2021 COVID-19 vaccine ([employer] NTech 30mcg/0.3mL) PF, MDV 07/01/2021,11/13/2020,10/20/2020 Influenza RIV4 (Age 18+ Year s) PRESERV FREE 04/29/2022 Influenza Virus, Unspecified 04/27/2018 Influenza, IIV4 03/24/2023,,03/19/2020,2014,05/17/2014 Influenza, IIV4 (=>6mos) MDV 04/09/2019,04/28/20 17 Tdap 06/12/2022,07/12/2012 Zoster (Shingrix-RZV, recombinant) 11/25/2022, Family History Medical History Relation Name Comments No Known Problems Brother 1 Hyperlipidemia Brother 2 Heart Disease Father Double Bypass, age 60s. Other Mother migraines Heart Disease Paternal Grandfather No Known Problems Sister Anesthesia Problem No Family History Blood Disease No Family History Relation Name Status Comments Brother 1 Alive Brother 2 Alive Father Mother Alive Paternal Grandfather Sister Alive Social History Tobacco Use Types Packs/Day Years Used Date Smoking Tobacco: Former Cigars Smokeless Tobacco: Never Tobacco Cessation:Counseling Given: Yes Comments:cigars Alcohol Use Standard Drinks/Week Comments Yes 0 (1 standard drink = 0.6 oz pur e alcohol) weekends PHQ-2 Answer Date Recorded PHQ-2 TOTAL SCORE 0 08/12/2022 Social Connections Answer Date Recorded Frequency of Communication with Friends and Fami ly 0 03/24/2023 Financial Resource Strain Answer Date R ecorded Difficulty of Paying Living Expenses 3 03/24/2023 Difficulty of Paying Living Expenses Not on file 03/24/2023 Food Insecurity Answer Date Recorded Worried About Running Out of Food in the Last Ye ar 1 03/24/2023 Transportation Needs Answer Date Record ed Lack of Transportation (Medical) 1 03/24/2023 Housing Stability Answer Date Recorded Unable to Pay for Housing in the Last Year 1 03/24/2023 Sex and Gender Information Value Date Recorded Sex Assigned at Not on file Gender Identity Not on file Sexual Orientation Not on file Obstetrics History Last Filed Vital Signs Vital Sign Reading Time Taken Comments Blood Pressure 136/83 03/24/2023 4:03 PM CDT Pulse 76 03/24/2023 4:03 PM CDT Temperature 36.8 ??C (98.2 ??F) 02/23/2023 12:59 PM C DT Respiratory Rate 20 07/31/2022 4:00 PM DONOR SERVICES TECHNICIAN Oxygen Saturation 97% 03/24/2023 4:03 PM CDT Inhaled Oxygen Concentration - - Weight 81.5 kg (179 lb 9.6 oz) 03/24/2023 4:03 P M CDT Height 182.9 cm (6' 0.01) 03/24/2023 4:03 PM CD T Body Mass Index 24.35 03/24/2023 4:03 PM CDT Plan of Treatment Health Maintenance Due Date Last Done Comments COVID-19 vaccine series ( season) 2023 07/13/2022, 04/29/2022, 11/22/2021, Additional history exists Depression screening for age 12+ 08/19/2023 08/19/2022, 08/12/2022, 11/25/2021, Additional history exists BMI (ht and wt on same day) for age 18+ 03/24/2024 03/24/2023, 11/22/2021, 10/12/2020, Additional history exists Colonoscopy through age 75 06/12/202506/12, 06/12/2020, 06/12/2020 Lipids for age 45-75 03/24/2028 03/24/2023, 11/22/2021, 05/18/2020, Additional history exists Tetanus booster 06/12/2032 06/12/2022, 07/12/2012 Hepatitis C screening for age 18-79 Completed 06/17/2019 Fecal testing non-DNA (FIT,FOBT,iFOBT) for age 45-75 Discontinued 07/19/2019, 01/21/2018, 11/19/2016, Additional history exists Tdap Completed 06/12/2022, 07/12/2012 Zoster (shingles) series for age 50+ Completed 11/25/2022, 06/12/2022 HIV for age 15-65 Completed 03/24/2023 Influenza for age 50-64 Completed 03/24/20 23, 04/29/2022, 04/24/2021, Additional history exists Pneumococcal series for age 6-64 Aged Out No longer eligible based on patient's age to complete this topic Advance Directives Latest Code Status on File Code Status Date Activated Date Inactivated Comments Full Code 09/28/2017 4:56 PM 09/29/2017 6:10 PM Code Status History Code Status Date Activated Date Inactivated Comments Full Code 10/30/2016 11:18 AM 10/31/2016 1:00 PM Care Teams Automatic Maintainer Relationship Specialty Start Date End Date Rosmery Alejandro PA [address] [place] [address] PCP - General Physician Information Technology Manager 11/25/22
[2023-08-07 07:16] LABS: Albumin* 4.4 g/dL (3.3-5.0); Chloride* 107 mmol/L (96-114); Potassium* 4.3 mmol/L (3.6-5.1); Sodium* 135 mmol/L (135-149)
[2023-08-07 07:19] LABS: Alanine Aminotransferase* 23 U/L (4-50); Alkaline Phosphatase* 78 U/L (40-150); Anion Gap 6 mEq/L (7-15); Aspartate Amino Transferase* 31 U/L (12-35); Bilirubin Direct* 0.1 mg/dL (0.0-0.5); Blood Urea Nitrogen* 16 mg/dL (7-30); Calcium* 9.2 mg/dL (8.4-10.6); Carbon Dioxide* 22 mmol/L (20-32); Creatinine* 0.7 mg/dL (0.5-1.5); Est. Creatinine Clearance* 123.93; Estimated Glomerular Filt Rate 106 ml/min; Glucose* 109 mg/dL (60-115); Total Protein* 7.5 g/dL (6.0-8.3)
--- NOTE | 2023-08-07 07:19 | ED_ITS ---
HPI - Chest Pain General Date Seen: 08/07/23 Chief Complaint: Chest Pain Stated Complaint: chest pain/numbness Time Seen by Provider: 08/07/23 06:49 Source: patient Mode of arrival: ambulatory Limitations: no limitations History of Present Illness HPI narrative: Patient is a 57-year-old male with a significant cardiac history comes in with some episodes of irregular heartbeats at rest for the past 1-2 weeks. He has had a numb and tingly feeling in his left arm and his feet have been cold. This morning he woke from sleep and was diaphoretic. No dyspnea or chest pain. He has been compliant with his medication. He quit smoking about one year ago. His cardiac history is significant for an NSTEMI in 2017 that was treated with a stent to his distal right coronary artery. One year ago he presented with intermittent chest pain with exertion and a positive troponin. He was sent to [place] in underwent a coronary thrombectomy and placement of a 2nd stent. He tells me that this was in the same area as the 1st one. At that time he had an ejection fraction of 62%. He has had outpatient cardiology follow-up with [facility]. His PCP is at [facility] in [facility]. 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 He also denies fatigue which was a presenting symptom previously. Related Data Home Medications Medication Instructions Recorded Confirmed atorvastatin 80 mg tablet 80 mg PO DAILY 11/16/22 08/07/23 clopidogrel 75 mg tablet 75 mg PO DAILY 11/16/22 08/07/23 losartan 25 mg tablet 25 mg PO DAILY 11/16/22 08/07/23 metoprolol succinate 50 mg 50 mg PO DAILY 11/16/22 08/07/23 tablet,extended release 24 hr nicotine (polacrilex) 2 mg gum 2 mg PO Q1-2H PRN 11/16/22 08/07/23 nicotine 14 mg/24 hr daily topical 11/16/22 06/18/23 transdermal patch nitroglycerin 0.4 mg sublingual mg sublingual 11/16/22 06/18/23 tablet Previous Rx's Medication Instructions Recorded doxycycline hyclate 100 mg capsule 200 mg (2 x 100 mg) PO QDAY #2 caps 11/16/22 tobramycin 0.3 % eye drops 1 drp ophthalmic (eye) Q4H #5 mL 06/18/23 Allergies Allergy/AdvReac Type Severity Reaction Status Date / Time No Known Drug Allergies Allergy Verified 08/07/23 06:37 Review of Systems Narrative Review of systems is outlined above otherwise noted to be negative. [facility] Medical History (Updated 08/07/23 @ 07:31 by Estevan Angel MD) Gout ?M10.9 - Gout, unspecified (ICD-10) Mixed hyperlipidemia ?E78.2 - Mixed hyperlipidemia (ICD-10) Primary hypertension ?I10 - Essential (primary) hypertension (ICD-10) History of colon polyps ?Z86.010 - Personal history of colonic polyps (ICD-10) Coronary artery disease ?I25.10 - Atherosclerotic heart disease of wiyot coronary artery without angina pectoris (ICD-10) Surgical History (Updated 08/07/23 @ 07:31 by Estevan Angel MD) History of meniscectomy of right knee ?Z98.890 - Other specified postprocedural states (ICD-10) History of bilateral inguinal herniorrhaphies ?Z98.890 - Other specified postprocedural states (ICD-10) ?Z87.19 - Personal history of other diseases of the digestive system (ICD-10) History of appendectomy ?Z90.49 - Acquired absence of other specified parts of digestive tract (ICD- 10) Social History (Updated 08/07/23 @ 07:31 by Estevan Angel MD) 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 HEENT: Conjunctiva clear. Tympanic membranes are pearly white bilaterally. Posterior pharynx is clear without erythema or exudate. Neck is supple without adenopathy, thyromegaly, carotid bruit. Lungs: Diminished but Clear to auscultation in all gramajo. No wheezes, rales, rhonchi. Heart: Regular rate and rhythm without murmur. He does have some PVCs noted on the phototypesetting equipment monitor. Abdomen: Soft and nontender. No guarding, rigidity, rebound. Bowel sounds are normal. No palpable masses. Extremities: No cyanosis or edema. Good distal pulses. Skin: No abnormalities noted of the exposed skin. Neurologic: Awake, alert, fully oriented. Neurologic exam is nonfocal. Const Vital Signs, click to edit/add: Vital Signs - 24 hr 08/07/23 06:37 Temperature 98.5 F Pulse Rate [Pulse Oximeter] 75 Respiratory Rate 20 Blood Pressure [Right Upper Arm] 143/92 H Pulse Oximetry 97 Oxygen Delivery Method Room Air Course Course ED Course: Patient was seen and examined. Initial EKG shows normal sinus rhythm with a rate of 76. No acute ST or T-wave changes. Point of care troponin is negative. Chest x-ray and other labs are ordered. Patient is currently asymptomatic. He is given aspirin 324 mg. Reevaluation(s) Reevaluation #1: Chest x-ray is normal. CBC, BMP, LFTs are normal. ProBNP is 58. Troponin is negative. D-dimer is negative. Patient remains asymptomatic. A 2nd troponin has been ordered for 845. Vital Signs Vital signs: Initial Vital Signs Temperature 98.5 F 08/07/23 06:37 Temperature Source Temporal Artery Scan 08/07/23 06:37 Pulse Rate 75 08/07/23 06:37 Pulse Strength 3+ Normal 08/07/23 06:37 Respiratory Rate 20 08/07/23 06:37 Blood Pressure 143/92 H 08/07/23 06:37 Blood Pressure Mean 109 H 08/07/23 06:37 Blood Pressure Position Sitting 08/07/23 06:37 Pulse Oximetry 97 08/07/23 06:37 Oxygen Delivery Method Room Air 08/07/23 06:37 Vital Signs Temperature 98.5 F 08/07/23 06:37 Pulse Rate 75 08/07/23 06:37 Respiratory Rate 20 08/07/23 06:37 Blood Pressure 143/92 H 08/07/23 06:37 Pulse Oximetry 97 08/07/23 06:37 Oxygen Delivery Method Room Air 08/07/23 06:37 Temperature 98.5 F 08/07/23 06:37 Pulse Rate 75 08/07/23 06:37 Respiratory Rate 20 08/07/23 06:37 Blood Pressure 143/92 H 08/07/23 06:37 Pulse Oximetry 97 02/02/24 06:37 Oxygen Delivery Method Room Air 08/07/23 06:37 Medications Administered Medications: Discontinued Medications Generic Name Dose Route Start Last Admin Trade Name Dewayne PRN Reason Stop Dose Admin Aspirin 324 mg 08/07/23 07:04 08/07/23 07:23 Aspirin 81 Mg Tab.Chew PO 08/07/23 07:05 324 mg ONCE ONE Administration MDM - Chest Pain Lab Data Labs: Lab Results 08/07/23 08/07/23 Range/Units 06:45 06:52 WBC 7.40 (4.50-11.00) K/uL RBC 5.56 (4.30-5.90) m/uL Hgb 16.5 (13.5-17.5) gm/dL Hct 48.4 (37.0-53.0) % MCV 87 (80-100) fL MCH 30 (26-34) pg MCHC 34 (32-36) gm/dL RDW Coeff of Alfred 12.9 (11.5-15.5) % Plt Count 251 (140-440) K/uL Neut % (Auto) 64.7 (42.0-72.0) % Lymph % (Auto) 25.8 (20-44) % Mcdowell % (Auto) 7.0 (0.0-11.0) % Eos % (Auto) 1.6 (0.0-7.0) % Baso % (Auto) 0.4 (0.0-3.0) % Neut # (Auto) 4.78 (1.7-7.0) K/uL Lymph # (Auto) 1.91 (0.90-2.90) K/uL Mcdowell # (Auto) 0.50 (0.00-0.90) K/UL Eos # (Auto) 0.12 (0.00-0.50) K/uL Baso # (Auto) 0.03 (0.00-0.30) K/uL Abs Immat Gran (auto) 0.04 (0.00-0.30) K/uL Imm/Tot Granulo (auto) 0.5 % D-Dimer Quant (PE/DVT) 0.03 (0.00-0.50) ug/ml Sodium 135 (135-149) mmol/L Potassium 4.3 (3.6-5.1) mmol/L Chloride 107 (96-114) mmol/L Carbon Dioxide 22 (20-32) mmol/L Anion Gap 6 L (7-15) mEq/L BUN 16 (7-30) mg/dL Creatinine 0.7 (0.5-1.5) mg/dL Estimated Creat Clear 123.93 Estimated GFR 106 ml/min Glucose 109 (60-115) mg/dL Calcium 9.2 (8.4-10.6) mg/dL Total Bilirubin 1.0 (0.1-1.5) mg/dL Direct Bilirubin 0.1 (0.0-0.5) mg/dL AST 31 (12-35) U/L ALT 23 (4-50) U/L Alkaline Phosphatase 78 (40-150) U/L Troponin I < 0.01 L (0.01-0.04) ng/mL NT-Pro-B Natriuret Pep 58 pg/mL Total Protein 7.5 (6.0-8.3) g/dL Albumin 4.4 (3.3-5.0) g/dL POC Troponin I 0.01 (0.01-0.04) ng/ml Discharge Plan Discharge Prescriptions: No Action clopidogrel 75 mg tablet 75 mg PO DAILY metoprolol succinate 50 mg tablet extended release 24 hr 50 mg PO DAILY losartan 25 mg tablet 25 mg PO DAILY atorvastatin 80 mg tablet 80 mg PO DAILY nitroglycerin 0.4 mg tablet, sublingual sublingual nicotine (polacrilex) 2 mg gum 2 mg PO Q1-2H PRN nicotine 14 mg/24 hr patch 24 hour topical doxycycline hyclate 100 mg capsule 200 mg PO QDAY Qty: 2 0RF tobramycin 0.3 % drops 1 drp ophthalmic (eye) Q4H Qty: 5 0RF Follow Up/Referrals: Provider,Not a Local [Primary Care Provider] -
[2023-08-07] MEDS: ASPIRIN 81 MG TAB.CHEW 324 MG PO (07:23)
[2023-08-07 07:30] VITALS: BP 127/88; PULSE 65; RESP 18; O2SAT 96
[2023-08-07 07:32] LABS: NT Pro B Type NatriureticPept* 58 pg/mL; Troponin I* < 0.01 ng/mL (0.01-0.04)
[2023-08-07 07:38] LABS: D Dimer Quantitative* 0.03 ug/ml (0.00-0.50)
[2023-08-07 09:00] VITALS: BP 119/90; PULSE 66; RESP 18; O2SAT 97
[2023-08-07 09:32] LABS: Troponin I* < 0.01 ng/mL (0.01-0.04)
[2023-08-07 10:00] VITALS: BP 134/84; PULSE 71; RESP 20; O2SAT 95
== END 2023-08-07 10:13 | disposition home or self-care (01) ==
PROVIDERS: Emergency Provider Family Medicine
DX: R07.89 Other chest pain (principal); Z71.1 Person with feared health complaint in whom no diagnosis is made
CPT/HCPCS: 36415; 71045; 80048; 80076; 83880; 84484; 85025; 85379; 93005; 99283; 99284; 99285; A9270

== ENCOUNTER 2025-05-17 08:33 | Emergency (ER) | payer OTHER, SELFPAY ==
[2025-05-17] VITALS (17 sets, daily range): BP systolic 127–140; BP diastolic 84–91; PULSE 60–83; RESP 18; TEMP 37; O2SAT 94–99
--- OUTSIDE RECORDS SUMMARY | 2025-05-17 08:36 | XMS_ITS | Clinical Summary ---
Author Organization [facility] Address [address] [place] [address] Care Team Providers Care Manager Ent Name Role Phone Renata Sanchez Primary Care Provider [phone] Allergies No known active allergies Medications nitroglycerin (NITROSTAT) 0.4 mg sublingual tabletIndications: ASHD (arteriosclerotic heart disease) Place 1 Tablet (0.4 mg) under the tongue every 5 minutes if needed for Chest Pain (first choice for chest pain). 25 Tablet 1 04/05/20 24 Active clopidogreL (PLAVIX) 75 mg tabletIndications: Non-ST elevation myocardial infarction (NSTEMI) (HC) Take 1 Tablet (75 mg) by mouth once daily. 90 Tablet 3 04/05/20 24 Active atorvastatin (LIPITOR) 80 mg tabletIndications: Hypertriglyceridem ia,ASCVD (arteriosclerotic cardiovascular disease),Non-ST elevation myocardial infarction (NSTEMI) (HC) Take 1 Tablet (80 mg) by mouth at bedtime. 90 Tablet 3 04/07/20 24 Active rosuvastatin 40 mg tabletIndications: Non-ST elevation myocardial infarction (NSTEMI) (HC) Take 1 Tablet (40 mg) by mouth once daily. 90 Tablet 3 11/23/19 25 Active losartan (COZAAR) 25 mg tabletIndications: HTN (hypertension) TAKE ONE TABLET BY MOUTH ONE TIME DAILY 90 Tablet 04/24/20 25 Active metoprolol succinate (TOPROL XL) 50 mg sustained-release tabletIndications: Non-ST elevation myocardial infarction (NSTEMI) (HC) TAKE ONE TABLET BY MOUTH ONE TIME DAILY 90 Tablet 04/24/20 25 Active losartan (COZAAR) 25 mg tabletIndications: hypertension Take 1 Tablet (25 mg) by mouth once daily. 90 Tablet 3 04/05/20 24 025 Discontinued metoprolol succinate (TOPROL XL) 50 mg sustained-release tabletIndications: Non-ST elevation myocardial infarction (NSTEMI) (HC) Take 1 Tablet (50 mg) by mouth once daily. 90 Tablet 3 04/05/20 24 025 Discontinued Active Problems Problem Noted Date Diagnosed Date Non-ST elevation myocardial infarction (NSTEMI) 08/19/2022 Overview (08/19/2022): [place] emergency room 07/31/22 with chest pain, normal troponins and CT angiogram showed patent stent RCA. Patient continued with chest pain, went to [facility] emergency room 08/04/22, elevated troponin. Transferred to [place], occluded stent noted. Stent replaced. HTN (hypertension) 10/12/2020 Adenomatous colon polyp 06/13/2020 Overview (06/13/2020): Colonoscopy 06/2020 polyp, moderate diverticulosis, repeat in 5 years Atypical chest pain 09/28/2017 ASHD (arteriosclerotic heart disease) 10/31/2016 Overview (10/31/2016): - angiogram 10/30/16: s/p SHAMIR dRCA Abnormal stress test 10/30/2016 Overview (10/30/2016): -Stress echocardiogram 10/28/2016 Negative for ischemia EF 65-70% Bilateral inguinal hernia 11/23/2012 Hypertriglyceridemia 07/12/2012 Vertigo 07/12/2012 Resolved Problems Problem Noted Date Diagnosed Date Resolved Date Chest pain 10/30/2016 09/28/2017 Cigarette smoker 10/30/2016 11/04/2016 Encounters Date Type Department Care Team Description 05/17/2025 Nurse Triage [facility] [address] [place] [address] Renata Sanchez PA Dizziness 04/23/2025 Refill [facility] [address] [place] [address] Renata Sanchez PA Refill Request (Losartan, Metoprolol Succinate) from Last 3 Months Immunizations Immunization Administration Dates Next Due COVID-19 VACCINE SPIKEVAX (M ODERNA 50MCG/0.5ML) 12YO+ PFS 05/10/2024,08/14/2023 COVID-19 vaccine (Pfizer-Bio NTech 30mcg/0.3mL) 12YO+ BIVALENT PF, MDV 07/13/2022 COVID-19 vaccine (Pfizer-Bio NTech 30mcg/0.3mL) 12YO+ JORDAN-SUCROSE PF, MDV 11/22/2021 COVID-19 vaccine (Pfizer-Bio NTech 30mcg/0.3mL) PF, MDV 07/01/2021,11/13/2020,10/20/2020 INFLUENZA, IIV3 PF (AGE >= 6 MO) 04/05/2024 Influenza RIV4 (Age 18+ Year s) PRESERV FREE 04/29/2022 Influenza Virus, Unspecified 04/27/2018 Influenza, IIV4 03/24/2023,,03/19/2020,2014,05/17/2014 Influenza, IIV4 (=>6mos) MDV 04/09/2019,04/28/20 Tdap 06/12/2022,07/12/2012 Zoster (Shingrix-RZV, recombinant) 11/25/2022, Family [...] Years Used Date Smoking Tobacco: Former Cigars 0 11/03/1975 - 10/27/2022 Smokeless Tobacco: Never Tobacco Cessation:Counseling Given: Yes Comments:cigars Alcohol Use Standard Drinks/Week Comments Yes 0 (1 standard drink = 0.6 oz pur e alcohol) weekends PHQ-2 Answer Date Recorded PHQ-2 TOTAL SCORE 0 04/05/2024 Social Connections Answer Date Recorded Do you often feel lonely or isolated from those around you? 0 04/05/2024 Financial Resource Strain Answer Date R ecorded Difficulty of Paying Living Expenses 3 04/05/2024 Difficulty of Paying Living Expenses Not on file 04/05/2024 Food Insecurity Answer Date Recorded Do you worry your food will run out before you are able to buy more? 1 04/05/2024 Transportation Needs Answer Date Record ed Does lack of transportation keep you from medica l appointments? 1 04/05/2024 Does lack of transportation keep you from work, meetings or getting things that you need? 1 04/05/2024 Housing Stability Answer Date Recorded What is your housing situation today? 1 04/05/2024 Utilities Answer Date Recorded Do you have trouble paying f or utilities (for example, heat, electricity, water, phone)? 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 Not on file Not on file Obstetrics History Last Filed Vital Signs Vital Sign Reading Time Taken Comments Blood Pressure 127/85 11/22/2024 3:29 PM CDT Pulse 78 11/22/2024 3:29 PM CDT Temperature 36.8 C (98.2 F) 02/23/2023 12:59 PM CDT Respiratory Rate 20 07/31/2022 4:00 PM LEAD GENERATION REPRESENTATIVE Oxygen Saturation 97% 11/22/2024 3:29 PM CDT Inhaled Oxygen Concentration - - Weight 77.6 kg (171 lb) 11/22/2024 3:29 PM CDT Height 178.3 cm (5' 10.2) 04/05/2024 3:33 PM CD T Body Mass Index 24.4 04/05/2024 3:33 PM CDT Plan of Treatment Upcoming Encounters Date Type Department Care Team (Late st Contact Info) Description 05/18/2025 12:50 PM LEAD GENERATION REPRESENTATIVE Office Visit [facility] [address] [place] [address] Renata Sanchez PA [address] [place] [address] Health Maintenance Due Date Last Done Comments Pneumococcal series for age 50+ (1 of 2 - PCV) 12/09/1982 RSV vaccine for adults or (1 - Risk 50-74 years 1-dose series) 12/09/2013 Influenza Vaccine (#1) 2025 , 03/24/2023, 04/29/2022, Additional history exists BMI (ht and wt on same day) for age 18+ 04/05/2025 04/05/2024, 03/24/2023, 11/22/2021, Additional history exists Depression screening for age 12+ 04/05/2025 04/05/2024, 09/09/2023, 09/03/2023, Additional history exists Colonoscopy through age 75 06/12/202506/12, 06/12/2020, 06/12/2020 Lipids for age 45-75 06/20/2029 06/20/2024, 04/05/2024, 04/05/2024, Additional history exists Tetanus booster 06/12/2032 06/12/2022, 07/12/2012 Hepatitis C screening for age 18-79 Completed 06/17/2019 Zoster (shingles) series for age 50+ Completed 11/25/2022, 06/12/2022 HIV for age 15-65 Completed 03/24/2023 Hepatitis B series for 19+ Aged Out N o longer eligible based on patient's age to complete this topic Procedures Procedure Name Priority Date/Time Associated Diagnosis Comments LIPID PANEL W REFLEX MEASURED LDL Routine 06/20/2024 3:23 PM LEAD GENERATION REPRESENTATIVE Hypertriglyceridemia ANTI HIV 1/2 Routine 03/24/2023 4:31 PM CDT Encounter for screening for human immunodeficiency virus (HIV) COLONOSCOPY SCREENING Routine 06/12/2020 8:35 AM LEAD GENERATION REPRESENTATIVE Screen for colon cancer ANTI HCV Routine 06/17/2019 11:23 AM LEAD GENERATION REPRESENTATIVE Need for hepatitis C screening test from Last 3 Months or Most Recently Relevant to Health Maintenance Results * (ABNORMAL) LIPID PANEL W REFLEX MEASURED LDL (06/20/2024 3:23 PM LEAD GENERATION REPRESENTATIVE) CHOLESTEROL, TOTAL 162 <200 mg/dL [facility] HDL CHOLESTEROL 34(L) > OR = 40 mg/dL [facility] TRIGLYCERIDES 209(H) <150 mg/dL [facility] Comment: If a non-fasting specimen was collected, consider repeat triglyceride testing on a fasting specimen if clinically indicated. Hubert et al. J. of Clin. Lipidol. 2015;9:129-169. LDL-CHOLESTEROL 98 mg/dL (calc) [facility] Comment: Reference range: <100 Desirable range <100 mg/dL for primary prevention; <70 mg/dL for patients with CHD or diabetic patients with > or = 2 CHD risk factors. LDL-C is now calculated using the Michelle calculation, which is a validated novel method providing better accuracy than the Friedewald equation in the estimation of LDL-C. Mekhi BARRIGA et al. VIOLETTA. 2013;310(19): 9749-4414 (http://education.Embedded Chat/faq/JCQ741) CHOL/HDLC RATIO 4.8 <5.0 (calc) [facility]ize NON HDL CHOLESTEROL 128 <130 mg/dL (calc) [facility] Comment: For patients with diabetes plus 1 major ASCVD risk factor, treating to a non-HDL-C goal of <100 mg/dL (LDL-C of <70 mg/dL) is considered a therapeutic option. Blood BLOOD SPECIMEN / Unknown 06/20/2024 3:23 PM LEAD GENERATION REPRESENTATIVE 06/20/2024 3:23 PM LEAD GENERATION REPRESENTATIVE us Renata ELDRIDGE CHEMISTRY Final Resu lt Easy Bill Online [facility] [address] [place] [address], [facility] [address] [place] [address] * ANTI HIV 1/2 (03/24/2023 4:31 PM CDT) [facility] HIV-1/HIV-2 SCREEN Non-Reacti ve Non-Reacti ve 03/25/2023 3:20 PM CDT [facility] Comment:HIV-1 p24 and HIV-1/ HIV-2 Ab Not Detected. Blood BLOOD SPECIMEN / Unknown Venipuncture / Unknown 03/24/2023 4:31 PM CDT 03/24/2023 4:31 PM CDT us Rosmery ELDRIDGE SEND OUTS Final Res ult [facility] [address] [place] [address], * COLONOSCOPY SCREENING (06/12/2020 8:35 AM LEAD GENERATION REPRESENTATIVE) us Mekhi Acuña MD GI PROCEDURE ORD Final Re sult * ANTI HCV (06/17/2019 11:23 AM LEAD GENERATION REPRESENTATIVE) HEPATITIS C ANTIBODY Non-React erik Non-React erik 06/17/2019 5:11 PM LEAD GENERATION REPRESENTATIVE [facility] Comment:Antibodies to HCV no t detected; does not exclude the possibility of exposure to HCV. Blood BLOOD SPECIMEN / Unknown Venipuncture / Unknown 06/17/2019 11:23 AM LEAD GENERATION REPRESENTATIVE 06/17/2019 11:25 AM LEAD GENERATION REPRESENTATIVE us Marcy ELDRIDGE SEND OUTS Final Resu lt Performing Organization Address [facility] [employer] de Phone Number [facility] [address] [place] [address], from Last 3 Months or Most Recently Relevant to Health Maintenance Insurance [place]EE [place]OTTER [id number] Advance Directives * Full Code (Latest Code Status on File) Date Activated Date Inactivated Comments 09/28/2017 4:56 PM 09/29/2017 6:10 PM * Full Code Date Activated Date Inactivated Comments 10/30/2016 11:18 AM 10/31/2016 1:00 PM Care Teams Manager Ent Relationship Specialty Start Date End Date Renata Sanchez PA [address] [place] [address] PCP - General Physician Data Entry Operator 06/20/24
--- NOTE | 2025-05-17 08:41 | ED.GENADULT ---
HPI - General Adult General Date Seen: 05/17/25 Chief complaint: Dizziness/Vertigo Stated complaint: Dizziness, lightheaded Time Seen by Provider: 05/17/25 08:39 History of Present Illness HPI narrative: 59 yo M with h/o CAD (NSTEMI 2017, RCA stent. repeat stent 2022. follow with [facility]) , HTN, hyperlipiedemia, who presents to the ER this morning with concerns for dizziness and unsteadiness. He did call his [facility] triage and they told him to come to the ER. His PCP is [facility] and he actually has an appointment with them tomorrow. Patient is been experiencing episodes of dizziness and unsteadiness for the past couple weeks. He says typically in the mornings after he gets up PC is a little bit off balance and unsteady. This tends to get better as he gets up and gets moving and starts his day. Sometimes he will do a little bit of count static so annual get better during that. 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 This morning he felt more dizzy and unsteady than normal. He tried to do some callus static specially felt worse and more dizzy and off balance. He had to hold onto the wall to keep his balance. This morning he also had a new symptom where his left foot felt numb and cold. He had not been feeling anything odd with his other symptoms lately. Now that he is here in the ER he is feeling better. His foot is back to normal. His unsteadiness is mostly better but not completely gone. He is not having any headache. No blurry vision or double vision. No tinnitus or trouble with his hearing. No pain in his neck. No chest pain. No palpitations. He has not had any cough or trouble breathing. He does note that he has had some sinus congestion but that is been there for a long time, perhaps a year or so. No abdominal pain. No nausea vomiting. Bowel movements have been normal. He tries to eat a high-fiber diet to keep his stools fairly soft. No black or bloody stools. Urination has been normal. He says he tries to drink plenty of fluids and stay hydrated. Urination has been normal. No swelling in his arms or legs. Related Data Home Medications ?Medication ?Instructions ?Recorded ?Confirmed clopidogrel 75 mg tablet 75 mg PO DAILY 11/16/22 05/17/25 losartan 25 mg tablet 25 mg PO DAILY 11/16/22 05/17/25 metoprolol succinate 50 mg 50 mg PO DAILY 11/16/22 05/17/25 tablet,extended release 24 hr nicotine (polacrilex) 2 mg gum 2 mg PO Q1-2H PRN 11/16/22 05/17/25 nitroglycerin 0.4 mg sublingual mg sublingual 11/16/22 06/18/23 tablet rosuvastatin 40 mg tablet 40 mg PO DAILY 05/17/25 05/17/25 Previous Rx's ?Medication ?Instructions ?Recorded doxycycline hyclate 100 mg capsule 200 mg (2 x 100 mg) PO QDAY #2 caps 11/16/22 tobramycin 0.3 % eye drops 1 drp ophthalmic (eye) Q4H #5 mL 06/18/23 Allergies Allergy/AdvReac Type Severity Reaction Status Date / Time No Known Drug Allergies Allergy Verified 05/17/25 08:44 [facility] Medical History (Updated 05/17/25 @ 13:28 by Eron Churchill MD) Gout ?M10.9 - Gout, unspecified (ICD-10) Mixed hyperlipidemia ?E78.2 - Mixed hyperlipidemia (ICD-10) Primary hypertension ?I10 - Essential (primary) hypertension (ICD-10) History of colon polyps ?Z86.010 - Personal history of colonic polyps (ICD-10) Coronary artery disease ?I25.10 - Atherosclerotic heart disease of [place] coronary artery without angina pectoris (ICD-10) Surgical History (Updated 08/07/23 @ 07:31 by Estevan Angel MD) History of meniscectomy of right knee ?Z98.890 - Other specified postprocedural states (ICD-10) History of bilateral inguinal herniorrhaphies ?Z98.890 - Other specified postprocedural states (ICD-10) ?Z87.19 - Personal history of other diseases of the digestive system (ICD-10) History of appendectomy ?Z90.49 - Acquired absence of other specified parts of digestive tract (ICD-10) Social History (Updated 08/07/23 @ 07:31 by Estevan Angel MD) 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 Alert. Conversant. Non toxic. HENT: Head: Atraumatic. Nose: Nose normal. Mouth/Throat: Oral mucosa is clear and moist. no trismus. Pharynx normal. Tonsils symmetric. No tonsillar enlargement, erythema, or exudate. Eyes: Conjunctivae normal. EOM normal. Pupils equal, round, and reactive to light. No scleral icterus. Neck: Normal range of motion. Neck supple. No tracheal deviation present. No JVD. No carotid bruits Cardiovascular: Normal rate, regular rhythm. No gallop. No friction rub. No murmur heard. Symmetric radial and DP artery pulses . Normal brisk distal cap refill in all 4 extremities are pink and warm and well perfused. Pulmonary/Chest: Effort normal. No stridor. No respiratory distress. No wheezes. No rales. No rhonchi . No tenderness. Abdominal: Soft. Bowel sounds normal. No distension. No mass. No tenderness. No rebound. No guarding. Musculoskeletal: RUE: Normal range of motion. No tenderness. No deformity LUE: Normal range of motion. No tenderness. No deformity RLE: Normal range of motion. No edema. No tenderness. No deformity LLE: Normal range of motion. No edema. No tenderness. No deformity Neurological: Mental status normal. Attention normal. Alert and oriented x3. GCS 15. Memory normal. Speech fluent. Cognition normal. Cranial Nerves intact II-XII except I did not formally test gag or visual acuity. EOMI. Palate elevates symmetrically and tongue protrudes in the midline. Strength: 5/5 trapezius on the right and left 5/5 deltoid on the right and left 5/5 biceps on the right and left 5/5 triceps on the right and left 5/5 credit rating inspector on the right and left 5/5 thumb opposition on the right and left 5/5 finger abduction on the right and left 5/5 hip flexors (L3) on the right and left 5/5 quadriceps (L4) on the right and left 5/5 tibialis anterior on the right and left 5/5 EHL (L5) on the right and left 5/5 gastrocnemius (S1) on the right and left 5/5 hamstring on the right and left Sensation intact to light touch in both upper extremities (C4-T1) Sensation intact to light touch in Both lower extremities (L4-S1). Finger to nose and coordination normal. Gait normal. Skin: Skin is warm and dry. No rash noted. No pallor. Normal capillary refill. Onychomycosis of his toenails Psychiatric: Normal mood. Normal affect. Const: Vital Signs, click to edit/add: Vital Signs - 24 hr 05/17/25 08:38 05/17/25 09:38 05/17/25 09:45 Temperature 98.6 F Pulse Rate 66 65 Pulse Rate [Right Pulse Oximeter] 69 Pulse Rate [orthos tatic lying Pulse Oximeter] Pulse Rate [orthos tatic sitting Puls e Oximeter] Pulse Rate [orthos tatic standing Pul se Oximeter] Respiratory Rate 18 Blood Pressure Blood Pressure [Ri ght Upper Arm] 127/87 Blood Pressure [or thostatic lying Ri ght Arm] Blood Pressure [or thostatic sitting Right Arm] Blood Pressure [or thostatic standing Right Arm] Pulse Oximetry 98 96 98 Oxygen Delivery Me thod Room Air 05/17/25 10:00 05/17/25 10:19 05/17/25 10:30 Temperature Pulse Rate 62 67 65 Pulse Rate [Right Pulse Oximeter] Pulse Rate [orthos tatic lying Pulse Oximeter] Pulse Rate [orthos tatic sitting Puls e Oximeter] Pulse Rate [orthos tatic standing Pul se Oximeter] Respiratory Rate Blood Pressure Blood Pressure [Ri ght Upper Arm] Blood Pressure [or thostatic lying Ri ght Arm] Blood Pressure [or thostatic sitting Right Arm] Blood Pressure [or thostatic standing Right Arm] Pulse Oximetry 96 99 97 Oxygen Delivery Me thod 05/17/25 10:45 05/17/25 11:00 05/17/25 11:15 Temperature Pulse Rate 65 76 68 Pulse Rate [Right Pulse Oximeter] Pulse Rate [orthos tatic lying Pulse Oximeter] Pulse Rate [orthos tatic sitting Puls e Oximeter] Pulse Rate [orthos tatic standing Pul se Oximeter] Respiratory Rate Blood Pressure Blood Pressure [Ri ght Upper Arm] Blood Pressure [or thostatic lying Ri ght Arm] Blood Pressure [or thostatic sitting Right Arm] Blood Pressure [or thostatic standing Right Arm] Pulse Oximetry 97 94 97 Oxygen Delivery Me thod 05/17/25 11:30 05/17/25 11:45 05/17/25 12:00 Temperature Pulse Rate 83 71 68 Pulse Rate [Right Pulse Oximeter] Pulse Rate [orthos tatic lying Pulse Oximeter] Pulse Rate [orthos tatic sitting Puls e Oximeter] Pulse Rate [orthos tatic standing Pul se Oximeter] Respiratory Rate Blood Pressure Blood Pressure [Ri ght Upper Arm] Blood Pressure [or thostatic lying Ri ght Arm] Blood Pressure [or thostatic sitting Right Arm] Blood Pressure [or thostatic standing Right Arm] Pulse Oximetry 98 97 94 Oxygen Delivery Me thod 05/17/25 12:01 05/17/25 13:09 05/17/25 13:10 Temperature Pulse Rate 67 68 Pulse Rate [Right Pulse Oximeter] Pulse Rate [orthos tatic lying Pulse Oximeter] Pulse Rate [orthos tatic sitting Puls e Oximeter] Pulse Rate [orthos tatic standing Pul se Oximeter] Respiratory Rate Blood Pressure 132/84 135/87 132/86 Blood Pressure [Ri ght Upper Arm] Blood Pressure [or thostatic lying Ri ght Arm] Blood Pressure [or thostatic sitting Right Arm] Blood Pressure [or thostatic standing Right Arm] Pulse Oximetry 98 96 Oxygen Delivery Me thod 05/17/25 13:11 05/17/25 13:12 05/17/25 13:12 Temperature Pulse Rate 74 Pulse Rate [Right Pulse Oximeter] Pulse Rate [orthos tatic lying Pulse Oximeter] 60 Pulse Rate [orthos tatic sitting Puls e Oximeter] 72 Pulse Rate [orthos tatic standing Pul se Oximeter] 78 Respiratory Rate Blood Pressure 140/91 H Blood Pressure [Ri ght Upper Arm] Blood Pressure [or thostatic lying Ri ght Arm] 135/87 Blood Pressure [or thostatic sitting Right Arm] 132/86 Blood Pressure [or thostatic standing Right Arm] 140/91 H Pulse Oximetry 98 Oxygen Delivery Me thod Course Course ED Course: Recheck -1145. Patient says is mostly feeling better. Perhaps minimal unsteadiness but is ambulatory and smiling walking easily and steadily in the hallway without any ataxia or left. His left foot cold and numbness is completely resolved. Vital Signs Vital signs: Initial Vital Signs Temperature 98.6 F 05/17/25 08:38 Temperature Source Temporal Artery Scan 05/17/25 08:38 Pulse Rate 69 05/17/25 08:38 Pulse Rhythm Regular 05/17/25 08:38 Pulse Strength 3+ Normal 05/17/25 08:38 Respiratory Rate 18 05/17/25 08:38 Blood Pressure 127/87 05/17/25 08:38 Blood Pressure Mean 100 05/17/25 08:38 Blood Pressure Position Sitting 05/17/25 08:38 Pulse Oximetry 98 05/17/25 08:38 Oxygen Delivery Method Room Air 05/17/25 08:38 Vital Signs Temperature 98.6 F 05/17/25 08:38 Pulse Rate 69 05/17/25 08:38 Respiratory Rate 18 05/17/25 08:38 Blood Pressure 127/87 05/17/25 08:38 Pulse Oximetry 98 05/17/25 08:38 Oxygen Delivery Method Room Air 05/17/25 08:38 Temperature 98.6 F 05/17/25 08:38 Pulse Rate 60 05/17/25 13:12 Respiratory Rate 18 05/17/25 08:38 Blood Pressure 135/87 05/17/25 13:12 Pulse Oximetry 98 05/17/25 13:11 Oxygen Delivery Method Room Air 05/17/25 08:38 Medical Decision Making MDM Narrative Medical decision making narrative: 59-year-old gentleman with a known history of coronary disease presenting to the ER today because he has had episodes of dizziness typically in the morning for the past couple of weeks. This morning's episode of dizziness was worse than prior and also associated with a cold numb feeling in his left foot. No other focal weakness or numbness. Upon arrival to the ER his left foot is no longer numb but he still feels just a little bit mildly unsteady. Differential for his dizziness is very broad. Since it happens in the morning after getting out of bed consider orthostatic hypotension. However he is not really hypotensive, tachycardic. He has not had any recent changes in his medications or anti hypertensives. Administration of IV fluids really did not make any difference with the symptoms here in the ER. He is feeling mostly better but did not change with fluids. We did check orthostatics here in the ER and they did not change. No clear definitive evidence for orthostatic hypotension but given the patient's symptoms getting out of bed in the mornings over the past couple of weeks, I suspect this probably is related to blood pressure. He is not hypotensive or tachycardic. He is not anemic. Hemoglobin normal. No recent black or bloody stools or other symptoms of GI bleeding. He is not having any chest pain or shortness of breath but we did check screening EKG and troponin. They are normal. EKG shows sinus rhythm and no evidence for AFib or other arrhythmia. Kidney function, electrolytes, liver function normal. Alcohol level undetectable. He is not having any cough but we did check COVID and flu and they are negative. Consider possible stroke or intermittent TIA symptoms. However with 2 weeks of symptoms typically in the morning, TIA would be a little bit unusual given the regularity of the recurrences. Head CT scan is negative for any sign of bleed, cerebral edema, mass. CTA of his head is normal. CT of his neck is notable for a 50% stenosis of his right internal carotid artery that is either due to noncalcified atherosclerosis or a carotid web. No dissection or critical stenosis. Discussed with stroke neurology from [facility], Dr. Gardiner. He consulted on the patient and also agrees that this is likely orthostatic hypotension in the morning. He does not think that the foot tingling was a TIA. He would not recommend any additional anti-platelet agents. Highly recommend close outpatient follow-up with PCP for blood pressure monitoring and potential reduction antihypertensives. Also recommends outpatient follow-up for potential peripheral artery disease. Dr. Gardiner speculates there is that perhaps the patient has some peripheral artery disease in his left leg and was feeling cold this morning because of hypotension and focal malperfusion. I would recommend outpatient ROVERTO. He is not having any back pain or other leg numbness or weakness to suggest a lumbar radiculopathy. Currently his feet are both pink, warm, well perfused with strong distal pulses normal cap refill. There is no evidence for any acute limb ischemia. Also no evidence for any gangrene or other cellulitis affecting either of his feet. Discussed plan of care with the patient. He verbalizes understanding. He already has an appointment set up with his primary care provider at the [facility] tomorrow. Lab Data Labs: Lab Results 05/17/25 05/17/25 Range/Units 09:23 09:28 WBC 8.19 (4.50-11.00) K/uL RBC 5.44 (4.30-5.90) m/uL Hgb 16.3 (13.5-17.5) gm/dL Hct 47.6 (37.0-53.0) % MCV 88 (80-100) fL MCH 30 (26-34) pg MCHC 34 (32-36) gm/dL RDW Coeff of Alfred 12.8 (11.5-15.5) % Plt Count 251 (140-440) K/uL Neut % (Auto) 65.8 (42.0-72.0) % Lymph % (Auto) 26.3 (20-44) % Spencer % (Auto) 6.0 (0.0-11.0) % Eos % (Auto) 1.1 (0.0-7.0) % Baso % (Auto) 0.2 (0.0-3.0) % Neut # (Auto) 5.39 (1.7-7.0) K/uL Lymph # (Auto) 2.15 (0.90-2.90) K/uL Spencer # (Auto) 0.50 (0.00-0.90) K/UL Eos # (Auto) 0.09 (0.00-0.50) K/uL Baso # (Auto) 0.02 (0.00-0.30) K/uL Abs Immat Gran (auto) 0.05 (0.00-0.30) K/uL Imm/Tot Granulo (auto) 0.6 % Sodium 137 (135-149) mmol/L Potassium 4.3 (3.6-5.1) mmol/L Chloride 102 (96-114) mmol/L Carbon Dioxide 23 (20-32) mmol/L Anion Gap 12 (7-15) mEq/L BUN 15 (7-30) mg/dL Creatinine 0.7 (0.5-1.5) mg/dL Estimated GFR 105 ml/min Glucose 87 (60-115) mg/dL Lactate 0.8 (0.5-1.9) mmol/L Calcium 9.3 (8.4-10.6) mg/dL Total Bilirubin 0.8 (0.1-1.5) mg/dL AST 31 (12-35) U/L ALT 26 (4-50) U/L Alkaline Phosphatase 84 (40-150) U/L Troponin I < 0.01 (0.01-0.04) ng/mL Total Protein 7.4 (6.0-8.3) g/dL Albumin 4.5 (3.3-5.0) g/dL Ethyl Alcohol < 0.01 (0.01-0.03) % SARS-CoV-2 (PCR) Negative SARS-CoV-2 (Negative) Influenza Type A (PCR) Negative PCR FLU A (Negative) Influenza Type B (PCR) Negative PCR FLU B (Negative) RSV (PCR) Negative PCR RSV (Negative) Imaging Data CT scan - head: Attestation: I have reviewed the pertinent imaging results. Radiologist's impression: IMPRESSION: Normal head CT. CTA head and neck: Attestation: I have reviewed the pertinent imaging results. Radiologist's impression: IMPRESSION: CTA head: No large vessel occlusion or significant aneurysm. CTA neck: Common origin of the right brachiocephalic and left common carotid arteries, a normal variant. There is 50% stenosis of the right proximal internal carotid artery due to a small web versus non calcified atherosclerotic plaque. (Series 6, image 85). No dissection. No critical stenosis or occlusion. Pulmonary emphysema. ECG Data Attestation: I personally reviewed and interpreted this ECG as follows: Interpretation: Normal sinus rhythm Rate 63 MD interval 148 Normal QRS axis No ST segment elevation or depression. Nonspecific T-wave flattening in leads aVL, V1, V2. QT 400, QTC 409 Discharge Plan Discharge Clinical Impression: Dizziness, Numbness of left foot, Carotid artery stenosis, asymptomatic Patient Disposition: Home, Self-Care Condition: Stable Instructions: Carotid Artery Disease (DC), Dizziness (ED) Additional Instructions: Thank you for coming to the ER today. At this point your workup looks generally reassuring. We suspect that your dizzy spells are probably related to blood pressure that is a little bit too low for you in the morning. Please follow-up with your regular doctor tomorrow. They may need to do further checks for your blood pressure. Your doctor may also need to change her blood pressure medications. Right now the scan of your brain looks good. We do notice that you have a small slightly narrow area in your right carotid artery. Please follow-up for this area with your doctor. You should get a repeat scan of your artery every couple of years to make sure this is not be come more significantly narrow. Continue on your current medications, and your Plavix, for now. For your left foot numbness and coldness, please talk to your doctor about this. Asked them to order and ?ankle brachial index? to check for potential blocked artery feeding her left leg. If you have any worsening symptoms or other problems, more episodes of numbness in your foot, or other numbness or weakness in your body, please come back to the ER right away to be rechecked. Prescriptions: No Action clopidogrel 75 mg tablet 75 mg PO DAILY metoprolol succinate 50 mg tablet extended release 24 hr 50 mg PO DAILY losartan 25 mg tablet 25 mg PO DAILY nitroglycerin 0.4 mg tablet, sublingual sublingual nicotine (polacrilex) 2 mg gum 2 mg PO Q1-2H PRN doxycycline hyclate 100 mg capsule 200 mg PO QDAY Qty: 2 0RF tobramycin 0.3 % drops 1 drp ophthalmic (eye) Q4H Qty: 5 0RF rosuvastatin 40 mg tablet 40 mg PO DAILY Follow Up/Referrals: Provider,Not a Local [Non-Staff, Family Practice] Stand Alone Forms: [facility] Info Instructions
--- NOTE | 2025-05-17 09:12 | CRLHL7_ITS ---
For Patients: As a result of the Century Cures Act, medical imaging exams and procedure reports are released immediately into your electronic medical record. You may view this report before your referring provider. If you have questions, please contact your health care provider. INDICATION: Unsteadiness and dizziness, left foot numbness. COMPARISON: 08/16/2021 TECHNIQUE: CT of the brain / head without intravenous contrast. Multiplanar axial, coronal, and sagittal reformats were reconstructed. FINDINGS: No intracranial hemorrhage. Normal appearance of the white matter. No acute or subacute cortically based infarct. No cerebral edema. No mass or mass effect. No hydrocephalus. Mild ventricular asymmetry is unchanged in within normal limits of variation. No skull fractures. No worrisome focal bone lesion. The mastoids and middle ears are well aerated. IMPRESSION: Normal head CT. Please note that all CT scans at this facility use dose modulation, iterative reconstruction, and/or weight-based dosing when appropriate to reduce radiation dose to as low as reasonably achievable. Dictated by Gabriella Hall MD @ 05/17/2025 10:29:44 AM (Electronically Signed)
--- NOTE | 2025-05-17 09:12 | CRLHL7_ITS ---
For Patients: As a result of the Century Cures Act, medical imaging exams and procedure reports are released immediately into your electronic medical record. You may view this report before your referring provider. If you have questions, please contact your health care provider. INDICATION: Acute stroke, unsteadiness, dizziness, left foot numbness. TECHNIQUE: CTA head using intravenous contrast with bolus tracking, 3D angiographic rendering using maximum intensity projection (MIP) and images permanently archived. CTA neck using intravenous contrast with bolus tracking, 3D angiographic rendering using maximum intensity projection (MIP) and images permanently archived. FINDINGS: CTA head: There is normal opacification of the intracranial vasculature. There is no large vessel occlusion or significant intracranial stenosis. No aneurysm is identified. CTA neck: There is atherosclerotic plaque in the proximal right ICA resulting in a mild stenosis, less than 50% by NASCET. There is no significant left carotid artery stenosis or dissection. There is no significant vertebral artery stenosis or dissection. Degenerative changes are noted in the cervical spine. Emphysema is present in the visualized lungs. IMPRESSION: No acute intracranial abnormality at CTA. Mild proximal right ICA stenosis, less than 50% by NASCET. Signed by: Yo Thayer MD @05/18/2025 7:16:52 AM JR/Dictated by: Yo Thayer MD @ 05/18/2025 10:19:00 AM (Electronically Signed)
[2025-05-17 09:32] LABS: Lactate* 0.8 mmol/L (0.5-1.9)
[2025-05-17 09:33] LABS: Hematocrit* 47.6 % (37.0-53.0); Hemoglobin* 16.3 gm/dL (13.5-17.5); Immature Granulocytes Abs Auto 0.05 K/uL (0.00-0.30); Immature Granulocytes Pct Auto 0.6 %; Lymphocytes Absolute Auto 2.15 K/uL (0.90-2.90); Mean Corpuscular HGB Conc 34 gm/dL (32-36); Mean Corpuscular Hemoglobin 30 pg (26-34); Mean Corpuscular Volume 88 fL (80-100); RDW Coefficient of Variation % 12.8 % (11.5-15.5); Red Blood Count* 5.44 m/uL (4.30-5.90); White Blood Count* 8.19 K/uL (4.50-11.00)
[2025-05-17 09:43] LABS: Slide Review Reflex No
[2025-05-17 09:50] LABS: Albumin* 4.5 g/dL (3.3-5.0); Chloride* 102 mmol/L (96-114); Potassium* 4.3 mmol/L (3.6-5.1); Sodium* 137 mmol/L (135-149)
[2025-05-17 09:53] LABS: Alanine Aminotransferase* 26 U/L (4-50); Alkaline Phosphatase* 84 U/L (40-150); Anion Gap 12 mEq/L (7-15); Aspartate Amino Transferase* 31 U/L (12-35); Bilirubin Total* 0.8 mg/dL (0.1-1.5); Blood Urea Nitrogen* 15 mg/dL (7-30); Calcium* 9.3 mg/dL (8.4-10.6); Carbon Dioxide* 23 mmol/L (20-32); Creatinine* 0.7 mg/dL (0.5-1.5); Estimated Glomerular Filt Rate 105 ml/min; Glucose* 87 mg/dL (60-115); Total Protein* 7.4 g/dL (6.0-8.3)
[2025-05-17 09:55] LABS: Ethanol* < 0.01 % (0.01-0.03)
[2025-05-17 10:22] LABS: PCR FLU A Negative PCR FLU A (Negative); PCR FLU B Negative PCR FLU B (Negative); PCR RSV Negative PCR RSV (Negative); SARS PCR* Negative SARS-CoV-2 (Negative)
== END 2025-05-17 14:19 | disposition home or self-care (01) ==
PROVIDERS: Emergency Provider Emergency Medicine; PCP Physician Assistant
DX: I65.23 Occlusion and stenosis of bilateral carotid arteries (principal); R42 Dizziness and giddiness; R20.0 Anesthesia of skin
CPT/HCPCS: 36415; 70450; 70496; 70498; 80053; 82077; 83605; 84484; 85025; 87631; 93005; 99283; 99285; Q9967